=== PATIENT | female | born 1960 | race Caucasian/White ===

== ENCOUNTER 2017-01-30 05:16 | Day surgery (SDC) | payer OTHER ==
[~2017-01-30] VITALS: Ht 172.7 cm; Wt 127.0 kg
--- NOTE | ~2017-01-30 | OP ---
PATIENT NAME: NATIVIDAD ROWAN MEDICAL RECORD: [id number] [facility]: SURGEON: TAYLOR MARTINO DPM DATE OF OPERATION: 01/30/2017 PREOPERATIVE DIAGNOSES: 1. Calcaneal spur, left foot. 2. Achilles disruption, left foot. POSTOPERATIVE DIAGNOSES: 1. Calcaneal spur, left foot. 2. Achilles disruption, left foot. PROCEDURE: 1. Gastroc recession, left leg. 2. Calcaneal spur ____, left posterior heel. 3. Achilles tendon repair, left foot. ANESTHESIA: Preoperative popliteal block per the anesthesia department as well as general anesthesia intraoperatively. HEMOSTASIS: Left thigh tourniquet at 350 mmHg. PREOPERATIVE DETAILS: The patient was taken to the OR. Following induction of general anesthesia, the patient was placed on the operating table in prone a position. The left extremity was then prepped and draped in the usual aseptic technique followed by exsanguination and inflation of tourniquet. PROCEDURE #1: Gastroc recession, left leg. A 15-blade was used to create a 4-cm linear incision over the posterior aspect of the left leg overlying the gastroc aponeurosis. The incision was deepened down through subcutaneous tissue bluntly through the subcutaneous fat to the peritenon. Longitudinal peritenon incision was made exposing the posterior aspect of the gastroc aponeurosis. At this time, with retraction and good visualization, a cut was made through the gastroc aponeurosis allowing adequate dorsiflexion at the ankle joint. The wound was flushed and the skin was closed with skin ethan. PROCEDURE #2: Calcaneal spur ____, left heel. A 15-blade was used to create a 5 cm linear incision over the posterior aspect of the left heel. The incision was deepened down through subcutaneous tissue to the Achilles tendon. The Achilles tendon was then exposed, there was noted to be significant enlargement of the posterior aspect of the heel at the insertion of the Achilles tendon. The Achilles tendon was then freed from the posterior aspect of the heel and a sagittal saw was used to resect the calcaneal spurring. The rasp was used to smooth the area. The wound was flushed. PROCEDURE #3: Achilles tendon repair, left foot. Utilizing suture bridge technique with 4 anchors, the Achilles tendon was reapproximated at the insertion of the Achilles tendon with rigid fixation. Following the repair with 4 anchors and FiberWire, the foot was able to put in dorsiflexion without disruption of the Achilles tendon. A 2-0 Vicryl was then used to close the deep tissue followed by 4-0 Rapide to close the subcutaneous tissue and 4-0 Rapide was used to close the skin in a subcuticular technique followed by Dermabond, Adaptic, 4 x 4 and Conform were used to dress the wounds followed by application of a modified Alcantar compression dressing. The tourniquet was deflated. OPERATIVE REPORT [id number] NATIVIDAD ROWAN POSTOPERATIVE DETAILS: The patient tolerated the procedure well and left the OR with vital signs stable and vascular status at preoperative levels. The patient was transported to recovery per anesthesia in stable condition. TRANSINT:[id number] Voice Confirmation ID: [id number] DOCUMENT ID: [id number] TAYLOR MARTINO DPM CC: [id number] DICTATION DATE: 01/30/17 1022 SVP OPERATIONS: 01/30/17 1400 REG [facility] [address] [id number]
[~2017-01-30 05:16] MED LIST: ASPIRIN EC81 M1 PO; FISH OIL 1,0001 CA1 PO; FOSINOPRIL SODI40 MG PO; FUROSEMIDE20 MG PO; GLUCOPHAGE500 MG PO; JANUVIA50 MG PO; MOBIC7.5 MG PO; SYNTHROID150 MCG PO
[2017-01-30 06:11] LABS: HEMATOCRIT 40.6 % (36.0-48.0); HEMOGLOBIN 13.1 g/dL (12-16); MCHC 32.3 g/dL (31.0-37.0); MCV 89.8 fL (80.0-100.0); MEAN PLATELET VOLUME 10.1 fL (7.4-10.4); RBC 4.52 10x6/uL (4.00-5.40); RDW 13.8 % (11.5-14.5); WBC 7.5 10x3/uL (4.8-10.8)
[2017-01-30 06:31] LABS: CALC OSMOLALITY 281 mosm/kg (275-300); CALCIUM 9.1 mg/dL (8.5-10.1); CARBON DIOXIDE 24.2 mmol/L (21.0-32.0); CHLORIDE - SERUM 105 mmol/L (98-107); CREATININE - SERUM 0.7 mg/dL (0.6-1.3); GLUCOSE 120 mg/dL (74-106); POTASSIUM - SERUM 4.3 mmol/L (3.5-5.1); SODIUM 139 mmol/L (136-145); UREA NITROGEN 21 mg/dL (7-18); eGFR NON AFRICAN AMERICAN > 90 mL/min (90-120)
[2017-01-30 07:09] VITALS: BP 129/76; Ht 172.7 cm; Wt 127.0 kg
--- NOTE | 2017-01-30 17:02 | NUR ---
1215--PT VOIDS WITHOUT DIFFICULTY, IV DC'D. ROBIN RN 1230--DISCHARGE INSTRUCTIONS GIVEN, PT VERBALIZES UNDERSTANDING. PT OFF UNIT VIA WC. ROBIN ASCENCIO
== END 2017-01-30 12:30 | disposition home or self-care (01) ==
LOC: D.OPS 05:16 → D.PAN 08:35 → D.OPS 08:35 → D.PAN 09:15 → D.OPS 12:30
PROVIDERS: Anesthesiology
DX: M77.32 Calcaneal spur, left foot (principal); S86.012A Strain of left Achilles tendon, initial encounter